=== PATIENT | female | born 1965 | race Asian ===

== ENCOUNTER 2019-10-06 13:57 | Emergency (ER) | payer OTHER, MEDICAID ==
[~2019-10-06] VITALS: Ht 149.9 cm; Wt 60.0 kg
[2019-10-06] MEDS ORDERED: IBUP-1506 PO (14:00)
[2019-10-06] MEDS ORDERED: ASPI-728 PO (14:00)
[2019-10-06] MEDS ORDERED: SIMV-260 PO (14:00)
[2019-10-06] MEDS ORDERED: IBUPROFEN 600 MG TABLET PO ONE (15:00)
[2019-10-06 15:53] VITALS: BP 122/71
== END 2019-10-06 15:54 | disposition home or self-care (01) ==
LOC: EMS 13:59
DX: S39.012A Strain of muscle, fascia and tendon of lower back, initial encounter (principal); E78.00 Pure hypercholesterolemia, unspecified; Z79.82 Long term (current) use of aspirin; Z79.899 Other long term (current) drug therapy; Z98.890 Other specified postprocedural states; V49.9XXA Car occupant (driver) (passenger) injured in unspecified traffic accident, initial encounter; Y93.89 Activity, other specified; Y92.488 Other paved roadways as the place of occurrence of the external cause; Y99.8 Other external cause status